=== PATIENT | male | born 1970 | race Hispanic/Latino ===

== ENCOUNTER 2019-10-04 11:06 | Emergency (ER) | payer OTHER ==
[~2019-10-04] VITALS: Ht 172.7 cm; Wt 99.8 kg
--- NOTE | 2019-10-04 13:00 | Diagnostic Imaging Report ---
EXAMINATION: RIBS UNILAT W/CXR- HOPD INDICATION: Trauma COMPARISON: None FINDINGS: LINES/TUBES:None LUNGS:The lungs are well-inflated. No focal consolidation or pulmonary edema. PLEURA:No pleural effusion or pneumothorax. MEDIASTINUM:The cardiomediastinal silhouette appears normal in size and shape. BONES/SOFT TISSUES:No acute osseous injury. Specifically, no acute rib fracture. ABDOMEN:No free air under the diaphragm. IMPRESSION: No acute rib fracture. Clear lungs. Signed by: Trace Clancy MD on 10/04/2019 12:56 PM
[2019-10-04] MEDS ORDERED: NAPROSYN500 MG PO (13:30)
== END 2019-10-04 13:40 | disposition home or self-care (01) ==
LOC: FSED 11:06
DX: S20.211A Contusion of right front wall of thorax, initial encounter (principal); W18.2XXA Fall in (into) shower or empty bathtub, initial encounter; Y93.E1 Activity, personal bathing and showering; Y92.002 Bathroom of unspecified non-institutional (private) residence as the place of occurrence of the external cause
CPT/HCPCS: 71101; 99283

== ENCOUNTER 2022-08-15 15:45 | Emergency (ER) | payer OTHER ==
[~2022-08-15] VITALS: Ht 172.7 cm; Wt 99.8 kg
[~2022-08-15 15:45] MED LIST: NAPROSYN500 MG PO
== END 2022-08-15 16:58 | disposition home or self-care (01) ==
LOC: ER 16:00
DX: Z57.5 Occupational exposure to toxic agents in other industries (principal); Y99.0 Civilian activity done for income or pay; R50.9 Fever, unspecified
CPT/HCPCS: 99283